=== PATIENT | female | born 1955 | race Caucasian/White ===

== ENCOUNTER 2017-04-16 12:11 | Outpatient (CLI) | payer BC ==
[2017-04-16 13:24] LABS: Hematocrit 43.4 % (36.0-47.0); Red Blood Cell (RBC) Count 4.42 mill/uL (4.20-5.40); White Blood Cell (WBC) Count 5.8 thou/uL (4.8-10.8)
[2017-04-16 13:48] LABS: Anion Gap 12 mmol/L (10-20); BUN (Urea Nitrogen) 14 mg/dL (9.8-20.1); Calc. Creatinine Clearance 0 mL/min (70-130); Carbon Dioxide 26 mmol/L (22-29); Chloride 107 mmol/L (98-107); Estimated GFR-MDRD 90
== END 2017-04-16 12:12 | disposition home or self-care (01) ==
LOC: LABBT 12:11
PROVIDERS: ATTEND Surgery
DX: Z01.818 Encounter for other preprocedural examination (principal); M48.061 Spinal stenosis, lumbar region without neurogenic claudication; M51.26 Other intervertebral disc displacement, lumbar region; M54.16 Radiculopathy, lumbar region
CPT/HCPCS: 80048; 85027; 93005; 93010

== ENCOUNTER 2017-04-17 12:25 | Outpatient (CLI) | payer BC ==
[2017-04-17 13:42] LABS: PTT 25.6 SEC (22.9-36.1)
[2017-04-17 13:44] LABS: Prothrombin Time 12.3 SEC (12.0-14.7)
== END 2017-04-17 12:26 | disposition home or self-care (01) ==
LOC: LABBT 12:25
PROVIDERS: ATTEND Surgery
DX: Z01.818 Encounter for other preprocedural examination (principal); M51.26 Other intervertebral disc displacement, lumbar region; M48.061 Spinal stenosis, lumbar region without neurogenic claudication; M54.16 Radiculopathy, lumbar region
CPT/HCPCS: 85610; 85730

== ENCOUNTER 2017-04-24 05:41 | Day surgery (SDC) | payer BC ==
[2017-04-16 12:26] VITALS: BMI 25.3
[2017-04-24] MEDS ORDERED: Sodium Chloride 0.9% 10 ML ONE (06:25)
[2017-04-24] MEDS ORDERED: Bacitracin Zinc Ointment 30 gm TUBE ONE (06:25)
[2017-04-24] MEDS ORDERED: Thrombin 5000 UNITS/5 ML VIAL ONE (06:25)
[2017-04-24] MEDS ORDERED: Phenylephrine 10 MG/NS 250 ML 0 ML ONE (07:16)
[2017-04-24] MEDS ORDERED: Albumin 5% 0 ML ONE (07:16)
[2017-04-24] MEDS ORDERED: Fentanyl 250 MCG/5 ML VIAL ONE (07:26)
[2017-04-24] MEDS ORDERED: Vecuronium 10 MG VIAL ONE (07:34)
[2017-04-24] MEDS ORDERED: Propofol 200 MG/20 ML VIAL ONE (07:34)
[2017-04-24] MEDS ORDERED: ePHEDrine/0.9% NaCl/PF SYRINGE 50 mg/10 ml ONE ×2 (07:34)
[2017-04-24] MEDS ORDERED: Glycopyrrolate 0.2 MG/ML 5 ML SYRINGE ONE (07:34)
[2017-04-24] MEDS ORDERED: Dexamethasone 20 MG/5 ML VIAL ONE (07:34)
[2017-04-24] MEDS ORDERED: Lidocaine 1% PF 5 ML VIAL ONE (07:34)
[2017-04-24] MEDS ORDERED: Ondansetron HCl/PF 4 MG/2 ML Vial ONE (07:34)
[2017-04-24] MEDS ORDERED: Promethazine HCl 25 MG/ML VIAL SLOW IVP PRN (09:42)
[2017-04-24] MEDS ORDERED: Ondansetron HCl/PF 4 MG/2 ML Vial IVP PRN (09:42)
[2017-04-24] MEDS ORDERED: Morphine Sulfate 2 MG/ML SYRINGE SLOW IVP PRN (09:42)
[2017-04-24] MEDS ORDERED: HYDROmorphone 2 MG/ML VIAL SLOW IVP PRN (09:42)
[2017-04-24] MEDS ORDERED: Promethazine HCl 25 MG/ML VIAL IM PRN (09:42)
[2017-04-24] MEDS ORDERED: Meperidine HCl/PF 25 MG/ML VIAL SLOW IVP PRN (09:42)
[2017-04-24] MEDS ORDERED: Fleet Enema 133 ML BOT PR PRN (10:11)
[2017-04-24] MEDS ORDERED: Bisacodyl 10 MG SUPP PR PRN (10:11)
[2017-04-24] MEDS ORDERED: HYDROcodone/Acetaminophen 7.5/325 mg Tablet PO PRN (10:11)
[2017-04-24] MEDS ORDERED: tiZANidine HCl 4 MG TAB PO PRN (10:11)
[2017-04-24] MEDS ORDERED: Acetaminophen/Codeine 30-300mg Tablet PO PRN (10:11)
[2017-04-24] MEDS ORDERED: Mag-Al 1200 mg/1200 mg/30 ML UDCUP PO PRN (10:11)
[2017-04-24] MEDS ORDERED: Promethazine HCl 25 MG/ML VIAL IVPB PRN (10:11)
[2017-04-24] MEDS ORDERED: Milk Of Magnesia 30 ML UDCUP PO PRN (10:11)
[2017-04-24] MEDS ORDERED: traMADol HCl 50 MG TAB PO PRN (10:11)
--- NOTE | 2017-04-24 10:26 | OP ---
DATE OF PROCEDURE: 04/24/2017 OR: OR #12. WOUND TYPE: Type 1 wound. SURGEON: Monster Schaeffer M.D. UTILITY BILL COLLECTION CLERK: Tone Barron PA-C. PREPROCEDURE DIAGNOSIS: Left L5 radiculopathy with left L4-L5 disk extrusion. POSTPROCEDURE DIAGNOSES: Left L5 radiculopathy with left L4-L5 disk extrusion. PROCEDURE: 1. Left L4-L5 hemilaminotomy, foraminotomy, and diskectomy. 2. Use of operative microscope for microdissection. DESCRIPTION OF PROCEDURE: After informed consent was obtained from the patient , the patient brought to OR 12. Proper patient pause and identification was carried out. She was placed under excellent general endotracheal anesthesia and positioned prone on the operating table. Midline lumbar aura was made allowing for approach to the L4-L5 segment. This area was sterilely cleansed, prepared, and draped. Proper patient pause and identification was carried out. The wound was then opened with a combination of sharp, monopolar and blunt dissection. We exposed the left L4-L5 hemilamina. Hemilamina and the medial portion of the facet. A localization film confirmed our area of interest and L4 -L5 hemilaminotomy was performed. The yellow ligament removed. We identified the left L5 nerve root which appeared to be compressed by underlying disk extrusion and osteophytic spurring of the superior articular process of the left L5 nerve root and then freeing this up encountered CSF leak emmanating from the root sleeve. The microscope was used for microdissection, working over the shoulder of the left L5 nerve root, protecting the root, we identified a large amount of extruded disk material. An annulotomy was made and disk material was removed resulting in excellent decompression of the traversing left L5 nerve root. We then again buttressed the opening in the dura with dissolvable Gelfoam and muscle pledget. There was no further CSF leak, even with two valsalva maneuvers. Copious irrigation occurred throughout and hemostasis was maximized. I was satisfied with our decompression of left L5 nerve root and certainly its freedom. DuraSeal was placed over the left L5 root and copious irrigation occurred. Hemostasis was maximized. The wound was closed in anatomic layers following the sprinkling of vancomycin powder. The patient then emerged from anesthesia. MTDD
[2017-04-24] MEDS ORDERED: Fentanyl 100 MCG/2 ML VIAL ONE (10:27)
[2017-04-24] MEDS: Morphine Sulfate 2 MG/ML SYRINGE SLOW IVP PRN ×3 (12:24→20:09)
[2017-04-24] MEDS: Sodium Chloride 0.9% 1,000 ML IV SCH ×2 (12:26→20:05)
[2017-04-24] MEDS ORDERED: Promethazine HCl 12.5 MG in Sodium Chloride 0.9% 50 ML IVPB PRN (17:51)
[2017-04-25] MEDS: Morphine Sulfate 2 MG/ML SYRINGE SLOW IVP PRN (00:42)
[2017-04-25] MEDS: Sodium Chloride 0.9% 1,000 ML IV SCH ×3 (01:12→19:58)
--- NOTE | 2017-04-25 09:20 | PRG ---
DATE OF SERVICE: 04/25/2017 Ms. Thornton is postoperative day 1 from left sided L4-L5 diskectomy. She has done well overnight. S he did have low back and some leg pain. I suspect this is radiculitis. We did have an intraoperati ve durotomy, but there was no evidence of CSF leak at the conclusion of the case, even with Valsalva maneuver. She has no headache this morning. She is sitting up at 30 degrees. We will plan to mob ilize her. Her strength is good in her lower extremities. Her wound is dry. We will mobilize her today and treat her for the radiculitis. I anticipate dismissal likely tomorrow.
[2017-04-25] MEDS: Gabapentin 100 MG CAP PO SCH ×3 (10:01→19:58)
[2017-04-25] MEDS: Famotidine 20 MG TAB PO SCH ×2 (10:02→19:58)
[2017-04-25] MEDS ORDERED: methylPREDNISolone 4 mg Tablet PO SCH ×2 (12:00→14:00)
[2017-04-25] MEDS: Acetaminophen 325 MG TAB PO PRN ×3 (13:53→23:55)
[2017-04-25] MEDS ORDERED: Dexamethasone 4 MG TAB PO SCH (16:00)
[2017-04-25] MEDS: methylPREDNISolone 4 mg Tablet PO SCH ×3 (16:30→23:55)
[2017-04-26] MEDS: Acetaminophen 325 MG TAB PO PRN ×2 (04:38→09:13)
[2017-04-26] MEDS: tiZANidine HCl 4 MG TAB PO PRN ×2 (04:38→11:49)
[2017-04-26 08:40] VITALS: BP 112/71; TEMP 97.4
[2017-04-26] MEDS: methylPREDNISolone 4 mg Tablet PO SCH ×2 (09:00→12:17)
[2017-04-26] MEDS: Gabapentin 100 MG CAP PO SCH (09:13)
[2017-04-26] MEDS: Famotidine 20 MG TAB PO SCH (09:13)
--- NOTE | 2017-04-26 12:51 | OP ---
DATE OF SERVICE: 04/26/2017 Ms. Thornton is postoperative day 2. Her left leg pain is improving. It remains really in the left c aylin. She has radiculitis in the left L5 nerve root. She has had no signs or symptoms of CSF leak a nd she is mobilizing. She has excellent strength in her lower extremity myotomes. I think it will simply take time for her to improve in regards to her leg pain, but she is already doing better in t his regard. We will plan for dismissal today. We went over issues to observe for such as wound dra hernandez postoperatively in addition to many others and I have asked her to contact me mid week next we ek to give me an update.
--- NOTE | 2017-04-26 21:29 | DIS ---
This is Tone Barron PA-C dictating for Dr. Monster Schaeffer. DATE OF ADMISSION: 04/24/2017 DATE OF DISCHARGE: 04/26/2017 DISCHARGE DIAGNOSES: 1. Low back pain with lumbar radiculopathy. 2. Lumbar spinal stenosis. 3. Lumbar herniated disk, left L4-L5. HOSPITAL COURSE: Ms. Thornton is admitted on 04/24/2017 to undergo an elective left L4-L5 hemilaminot guzman, foraminotomy, and diskectomy with Dr. Schaeffer on 04/24/2017. During the course of the operation , there was found to be a CSF leak, nerve root sleeves at the L5 nerve root. This was repaired intr aoperatively with and thrombin-soaked Gelfoam. Otherwise, the patient's surgery was without c omplication and she recovered for 2 overnight stays on the surgical floor. The patient did have martin e issues with postoperative pain control, especially with continued pain into the left calf. The pa tient was started on Medrol Dosepak as well as gabapentin, and her narcotic pain medication was limi wendy due to chronic hypotension. On the morning of 04/26/2017, the patient's pain was improving and she was stable for discharge home. Appropriate postoperative activity restrictions were reviewed wi th the patient and her in great detail. Appropriate outpatient followup appointments were s cheduled and outpatient followup appointments that have also been scheduled. At the time of dischar ge, the patient was complaining of continued left calf pain; however, improved when compared to, how ever, her overall left lumbar radiculopathy symptoms were improved. Overall, the patient was please d with her outcome postoperatively. Also at the time of discharge, the patient has no complaints of postural headache and no evidence of CSF leak.
== END 2017-04-26 12:45 | disposition home or self-care (01) ==
LOC: SDC 05:41 → SURG B 10:11 → SDC 04-26 12:45
PROVIDERS: ATTEND Surgery
DX: M51.16 Intervertebral disc disorders with radiculopathy, lumbar region (principal); M48.061 Spinal stenosis, lumbar region without neurogenic claudication; Z79.52 Long term (current) use of systemic steroids; Z79.899 Other long term (current) drug therapy
CPT/HCPCS: 76001; A4216; J0131; J1100; J1170; J2001; J2270; J2405; J2550; J2704; J3010; J3370; J3490; J7050; P9045